=== PATIENT | male | born 1950 | race African-American/Black ===

== ENCOUNTER 2021-03-22 14:56 | Emergency (ER) | payer MEDICARE, OTHER ==
[~2021-03-22] VITALS: Ht 172.7 cm; Wt 81.6 kg
[2021-03-22 16:34] VITALS: BP 167/68
== END 2021-03-22 16:35 | disposition home or self-care (01) ==
LOC: ER 15:03
DX: M25.562 Pain in left knee (principal); M25.511 Pain in right shoulder; V89.2XXD Person injured in unspecified motor-vehicle accident, traffic, subsequent encounter; J44.9 Chronic obstructive pulmonary disease, unspecified; Z86.718 Personal history of other venous thrombosis and embolism
CPT/HCPCS: 71046; 99282

== ENCOUNTER 2021-03-31 22:27 | Emergency (ER) | payer MEDICARE ==
[~2021-03-31] VITALS: Ht 172.7 cm; Wt 81.6 kg
[2021-03-31] MEDS ORDERED: ALBUTEROL SULF 0.083% NEB SOLN 3 ML NEB NEB STA (22:33)
[2021-03-31] MEDS ORDERED: IPRATROPIUM BROMIDE 0.02% 2.5 ML NEB NEB ONE (22:45)
[2021-03-31] MEDS ORDERED: METHYLPREDNISOLONE SOD SUCC 125 MG/2ML VIAL IM ONE (22:45)
== END 2021-04-01 | disposition home or self-care (01) ==
LOC: ER 22:29
DX: J44.9 Chronic obstructive pulmonary disease, unspecified (principal); R06.02 Shortness of breath; Z86.718 Personal history of other venous thrombosis and embolism; Z87.891 Personal history of nicotine dependence
CPT/HCPCS: 71045; 94640; 94799; 99283; J2930

== ENCOUNTER → 2021-09-09 | Outpatient (CLI) | payer MEDICARE, OTHER | LOC: MRI 08:52 | PROVIDERS: ATTEND Specialist | DX: S83.222D Peripheral tear of medial meniscus, current injury, left knee, subsequent encounter (principal) ==